=== PATIENT | male | born 1960 | race Caucasian/White ===

== ENCOUNTER 2023-04-21 15:00 | Outpatient (RCR) | payer BC, SELFPAY | END 2023-04-21 16:20 | disposition home or self-care (01) | LOC: PT 15:00 | PROVIDERS: Visit Provider Family Medicine Sports Medicine | DX: M17.12 Unilateral primary osteoarthritis, left knee (principal) | CPT/HCPCS: 97010; 97014; 97016; 97033; 97035; 97110; 97163; 97164; 97530; G0283 ==

== ENCOUNTER 2023-12-20 11:21 | Outpatient (CLI) | payer MEDICARE, SELFPAY ==
--- NOTE | 2023-12-20 11:22 | FL_ITS ---
FINAL REPORT CLINICAL HISTORY: intermittent dysphagia 1039.12 dap 1.00 fluoro FINDINGS: ESOPHAGRAM HISTORY: Dysphagia. PROCEDURE: The patient ingested barium. Effervescent crystals were also administered. Spot and overhead films were obtained. 33 total images were performed. FINDINGS: The esophagus is normal. There is no hiatal hernia. There is no gastroesophageal reflux demonstrated. There is very mild esophageal dysmotility. 13 mm barium tablet passes easily through the esophagus and into the stomach. FLUOROSCOPY TIME: 1 minute RADIATION EXPOSURE IN DAP: 1039.12 uGym2 IMPRESSION: Very mild esophageal dysmotility. Otherwise, unremarkable barium swallow. Reviewed, Interpreted and Dictated by Be Thurston III, MD Transcribed by Denae Acevedo PA-C Authenticated and [facility]
[2023-12-20] MEDS: BARIUM SULFATE(LIQUID E-Z-PAQUE);355ML BOTTLE 355 ML PO (11:41)
[2023-12-20] MEDS: E-Z-GASII EFFERVESCENT GRANULES;1PK 1 EACH PO (11:41)
[2023-12-20] MEDS: BARIUM SULFATE (E-Z-HD 340GM);135ML BOTTLE 135 ML PO (11:41)
== END 2023-12-20 23:59 | disposition home or self-care (01) ==
PROVIDERS: PCP Nurse Practitioner; Visit Provider Nurse Practitioner
DX: R13.10 Dysphagia, unspecified (principal)
CPT/HCPCS: 74220

== ENCOUNTER 2024-03-11 10:38 | Day surgery (SDC) | payer MEDICARE, SELFPAY ==
--- NOTE | 2024-03-08 08:05 | SUR.PREOP ---
called and left message in regards to procedure scheduled for Monday. Left message with arrival time, to be NPO at midnight the night prior, to bring a home medication list the day of the procedure. Asked patient to call back to verify medications since patient has anticoagulation prescribed. Message left 03/08/24 at 0806.
[2024-03-11 10:52] VITALS: BMI 31.5
[2024-03-11] MEDS: LACTATED RINGERS 1000ML 1,000 ML 50 ML IV (11:00)
[2024-03-11 11:09] VITALS: BP 148/106; PULSE 104; RESP 18; TEMP 36.7; O2SAT 91
--- NOTE | 2024-03-11 11:28 | P.PNANES_ITS ---
[facility] Disclaimer: The information contained in this section may have been updated after the patient was seen, as this information can be updated by other users. Medical History IBS (irritable bowel syndrome) Esophageal dysmotility Dysphagia GERD (gastroesophageal reflux disease) Swollen lymph nodes Surgical History (Updated 03/11/24 @ 10:58 by Joseph Gong RN) History of toe surgery History of tonsillectomy and adenoidectomy History of cataract surgery History of cardiac cath History of foot surgery History of thumb surgery History of left knee surgery History of total right knee replacement History of right knee surgery Family History (Updated 03/11/24 @ 10:58 by Joseph Gong RN) Other Colon cancer Social History (Updated 03/11/24 @ 10:59 by Joseph Gong RN) Smoking Status: Never smoker alcohol intake: never substance use type: denies use current occupational status: retired Travel in the last 8 weeks: None [facility] Anesthesia Checklist Patient Identification Patient Identification: Arm Band Structural Data Admitted From: Home Planned Operative Procedure/s: EGD/Colonoscopy Consent for Planned Operative Procedure(s) Verified: Yes Verified Documents: Surgical Consent and History and Physical NPO Status Verified Time NPO: 00:00 Additional verifications Anesthesia Reactions: No Airway Assessment Mallampati Score:: Class II C-Spine Mobility Assessed: Yes TMJ Mobility Assessed: Yes Dentition: Poor Dentition Neurological Assessment Level of Consciousness: Awake, Alert and Appropriate Anesthesia Plan Anesthesia Risk discussed: Yes Anesthesia Plan: Verified ASA Class: III Anesthesia Type: MAC
--- NOTE | 2024-03-11 11:37 | P.HP_ITS ---
History of Present Illness *Admission Date: 03/11/24 *Reason for visit:: Globus/dysphagia, iron deficiency, family history of colon cancer *History of present illness: Mr. Arroyo is a 64-year-old gentleman who is here for diagnostic EGD and colonoscopy. The patient has had GERD and dysphagia. He does have a history of iron deficiency and family history of colon cancer. The examination is deemed medically necessary for EGD and colonoscopy. The patient has been seen, interviewed and examined prior to the procedure by both myself and the anesthesia provider. [facility] Disclaimer: The information contained in this section may have been updated after the patient was seen, as this information can be updated by other users. Medical History IBS (irritable bowel syndrome) Esophageal dysmotility Dysphagia GERD (gastroesophageal reflux disease) Swollen lymph nodes Surgical History (Updated 03/11/24 @ 10:58 by Joseph Gong RN) History of toe surgery History of tonsillectomy and adenoidectomy History of cataract surgery History of cardiac cath History of foot surgery History of thumb surgery History of left knee surgery History of total right knee replacement History of right knee surgery Family History (Updated 03/11/24 @ 10:58 by Joseph Gong RN) Other Colon cancer Social History (Updated 03/11/24 @ 11:29 by Jer Dominguez CRNA) Smoking Status: Never smoker alcohol intake: never substance use type: denies use current occupational status: retired Travel in the last 8 weeks: None Have you lived/traveled outside [place] in past 30 days?: No Contact w/someone who lives/traveled outside US past 30 days?: No Exposure to someone with infectious disease in past 14 days?: No Do you have a fever (greater than 100.4 F or 38 C)?: No Have you tested positive for COVID-19: No Exposed to someone with COVID-19 in past 14 days?: No Do you have a sore throat?: No Do you have a cough?: No Do you have any weakness?: No Are you experiencing any nausea/vomitting?: No Do you have any diarrhea?: No Are you experiencing any unusual bleeding?: No Do you have any muscle aches/pain?: No Do you have any abdominal pain?: No Are you experiencing loss of taste or smell?: No Other Medical History Have you received the Pneumonia Vaccine: No Review of Systems Review of Systems Review of systems (narrative): Negative *Cardiovascular Comments: Negative *Gastrointestinal Comments: Negative *Genitourinary Comments: Negative *Musculoskeletal Comments: Negative *Neurologic Comments: Negative Meds Home Medications and Allergies Home Medications ?Medication ?Instructions ?Recorded ?Confirmed ?Type amlodipine 10 mg tablet (Norvasc) 10 mg PO DAILY 12/11/23 03/11/24 History aspirin 81 mg tablet,delayed 81 mg PO DAILY 12/11/23 03/11/24 History release (Adult Low Dose Aspirin) buspirone 5 mg tablet 5 mg PO DAILY 12/11/23 03/11/24 History calcium 600 mg (as 1 cap PO DAILY 12/11/23 03/11/24 History carbonate)-vitamin D3 12.5 mcg (500 unit) capsule (Calcium with Vit D3) cholecalciferol (vitamin D3) 10 20 mcg PO DAILY 12/11/23 03/11/24 History mcg (400 unit) capsule clopidogrel 75 mg tablet (Plavix) 75 mg PO DAILY 12/11/23 03/11/24 History escitalopram oxalate 5 mg tablet 5 mg PO DAILY 12/11/23 03/11/24 History (Lexapro) hydroxyzine HCl 25 mg tablet 25 mg PO HS 12/11/23 03/11/24 History levothyroxine 150 mcg tablet 150 mcg PO DAILY 12/11/23 03/11/24 History (Synthroid) magnesium aspart,citrate,oxide 400 mg PO DAILY 12/11/23 03/11/24 History (Triple Magnesium Complex) mecobalamin (vitamin B12) 500 mcg 1,000 mcg PO DAILY 12/11/23 03/11/24 History chewable tablet methocarbamol 750 mg tablet 750 mg PO HS 12/11/23 03/11/24 History multivitamin with minerals-folic 2 tab PO DAILY 12/11/23 03/11/24 History acid 120 mcg chewable tablet (Men's Multivitamin Gummies) omeprazole 40 mg capsule,delayed 40 mg PO BID 12/11/23 03/11/24 History release pediatric nthmobss-vtsn-qyx 1 tab PO DAILY 12/11/23 03/11/24 History (Multi-Vitamins with Iron chewable tablet) ropinirole 1 mg tablet 1 mg PO DAILY 12/11/23 03/11/24 History valsartan 80 mg tablet (Diovan) 80 mg PO DAILY 12/11/23 03/11/24 History rosuvastatin 20 mg tablet (Crestor) 20 mg PO DAILY 12/28/23 03/11/24 History famotidine 20 mg tablet (Pepcid) 20 mg PO DAILY 03/07/24 03/11/24 History New Prescriptions to Start Prescriptions: Allergies Allergy/AdvReac Type Severity Reaction Status Date / Time From Naproxen Sodium Allergy Mild NA-NAUSEA Uncoded 01/02/24 13:45 Exam Data for Last 24 hours I & O for Last 24 hours: Intake & Output 03/08/24 03/09/24 03/10/24 03/11/24 23:59 23:59 23:59 23:59 Weight 220 lb *Routine HEENT Exam Head: Present normocephalic Eye: Present EOMI and PERRL ENT: Present mucous membranes moist *Routine Neck Exam Neck: Present supple *Routine Respiratory Exam Respiratory: Present CTA bilaterally *Routine Cardiovascular Exam Cardiovascular: Present RRR *Routine Abdominal Exam Abdominal: Present soft and normoactive bowel sounds; Absent tenderness *Routine Rectal Exam Rectal:: deferred *Routine Genitalia Exam Genitalia:: deferred *Routine Extremities Exam Extremities: Absent cyanosis, clubbing or edema *Routine Skin Exam Skin: Present warm; Absent rash *Routine Neurological Exam Neurological: Present alert and oriented X3 Assessment and Plan *Assessment and plan (1) GERD (gastroesophageal reflux disease): Status: Acute Qualifiers: Esophagitis presence: with esophagitis Esophagitis bleeding: without hemorrhage Qualified Code(s): K21.00 - Gastro-esophageal reflux disease with esophagitis, without bleeding Category: Medical Code(s): K21.9 - Gastro-esophageal reflux disease without esophagitis (2) Dysphagia: Status: Acute Qualifiers: Dysphagia type: unspecified Qualified Code(s): R13.10 - Dysphagia, unspecified Category: Medical Code(s): R13.10 - Dysphagia, unspecified (3) Iron deficiency: Status: Acute Category: Medical Code(s): E61.1 - Iron deficiency (4) Irritable bowel syndrome with mixed bowel habits: Status: Acute Category: Medical Code(s): K58.2 - Mixed irritable bowel syndrome (5) Family history of colon cancer: Status: Acute Category: Medical Code(s): Z80.0 - Family history of malignant neoplasm of digestive organs Plan A/P: 1. GERD/dysphagia/globus sensation for upper endoscopy and iron deficiency plus family history for colonoscopy (last colonoscopy greater than 5 years ago) is the preprocedural diagnosis. The patient will be anesthetized/sedated using MAC sedation. The patient has been seen and examined. Cardiac and lung assessment prior to the examination is stable. Proceed with planned EGD and colonoscopy
[2024-03-11 11:52] VITALS: O2SAT 95
--- NOTE | 2024-03-11 11:57 | HMH.PROCNOTE ---
[facility] Procedure Note Date: 03/11/24 Procedure Note:: Upper Endoscopy Procedure Report: Esophagogastroduodenoscopy with cold biopsies and TTS balloon dilation Endoscopost: Jonas Munoz II, MD Referring Physician: SANTIAGO Hilliard Date of Procedure: March 11, 2024 Equipment: Olympus GIF 190 standard upper endoscope Sedation: MAC sedation Indications: Mr. Arroyo is a 64-year-old gentleman with dysphagia which can occur with solids or liquids. The patient did have an ENT and had a barium swallow which showed esophageal dysmotility but no other findings or esophageal stricture. He does state that eventually food will go down slowly. He has had moderate belching and gassiness. He reports occasional nausea and lower sternal chest discomfort. He reports no early satiety. The patient does have a long history of IBS with diarrhea. He does have incomplete bowel evacuation with some straining. He is uncertain whether he has ever had an EGD. Procedure: Prior to the procedure, a history and physical exam was performed, and patient's medications and allergies were reviewed. The risks, benefits and alternatives of the sedation and procedure were discussed with the patient. All questions were answered and informed consent was obtained. The patient was brought to the procedure room. Patient identification and proposed procedure were verified by the physician and the nurse. The patient was placed in a left lateral decubitus position and the scope was passed under direct vision. Throughout the procedure, the patient's blood pressure, pulse, and oxygen saturations were monitored continuously. The upper GI endoscopy was accomplished without difficulty. The patient tolerated the procedure well. Findings: The scope was passed directly into the upper esophagus and advanced to the third portion of the duodenum. The post bulbar duodenum and duodenal bulb had minor scalloping of the duodenal conniventes. Biopsies were taken from the post bulbar duodenum and duodenal bulb to rule out celiac disease. The scope was withdrawn through a normal duodenal bulb and pylorus into the stomach. There was some linear reactive gastropathy of the antrum and body with bile reflux. The remainder of the body and fundus were normal. Upon retroflexion there was no hiatal hernia biopsies were taken from the antrum.. The scope was then withdrawn into the esophagus. There was no evidence of reflux esophagitis or Austin's. There was no Schatzki's ring, corrugation or furrowing. There was no proximal esophageal inlet patch. There were strong tertiary contractions and evidence of moderate esophageal dysmotility. The entire esophagus was dilated to 60 Thai/20 mm with a TTS hydrostatic balloon. There was some resistance at the cricopharyngeus/cricopharyngeal spasm. The remainder of the esophageal mucosa was normal. Impression: 1. Cricopharyngeal spasm status post dilation to 20 mm 2. Nonerosive GERD with moderate esophageal dysmotility 3. Bile reflux with mild linear reactive gastropathy 4. Mild scalloping of duodenal conniventes?rule out celiac disease Plan: I will follow-up the biopsies to rule out celiac disease. The patient's dysphagia and globus are related to the cricopharyngeal spasm. We will discuss additional treatment options. I will proceed with colonoscopy.
--- NOTE | 2024-03-11 12:28 | HMH.PROCNOTE ---
[facility] Procedure Note Date: 03/11/24 Time: 12:28 Procedure Note:: Colonoscopy Procedure Report: Colonoscopy with cold snare polypectomy and ablation/coagulation of internal hemorrhoids Endoscopist: Jonas Munoz II, MD Referring physician: SANTIAGO Hilliard Date of Procedure: March 11, 2024 Equipment: Olympus 190 variable stiffness pediatric colonoscope Sedation: MAC sedation Indication: Mr. Arroyo is a 64-year-old gentleman with iron deficiency and mixed IBS with diarrhea and incomplete defecation. The patient also has some intermittent blood with wiping. He does get moderate gassiness. His mother had colon cancer in her early 70s and he had maternal great aunts with colon cancer. His last colonoscopy was more than 5 years ago. He has had a colon polyp removed previously. He reports no abdominal pain or weight loss. He has no bloating. Procedure: Prior to the procedure, a history and physical exam was performed, and patient's medications and allergies were reviewed. The risks, benefits and alternatives of the sedation and procedure were discussed with the patient. All questions were answered and informed consent was obtained. The patient was brought to the procedure room. Patient identification and proposed procedure were verified by the physician and the nurse. The patient was placed in a left lateral decubitus position and the scope was passed under direct vision. Throughout the procedure, the patient's blood pressure, pulse, and oxygen saturations were monitored continuously. The colonoscopy was accomplished without difficulty. The patient tolerated the procedure well. Findings: On digital rectal examination there was normal rectal tone. There were no external hemorrhoids. The prostate was 2+, smooth, soft, symmetric without nodules. The colonoscope was introduced through the anal canal to the rectum and advanced to the cecum. The ileocecal valve and appendiceal orifice were identified. The scope was advanced a short distance into the ileum which appeared grossly normal. The scope was then withdrawn into the colon. There were 2 polyps (cecum x 1 (4 mm) and descending x 1 (4 mm)). Both of these were removed via cold snare polypectomy. The remaining cecum, ascending and transverse colon and mucosa were grossly normal. There were scattered diverticuli throughout the descending and sigmoid colon (LEFT colon). The rectum itself was normal. Upon retroflexion within the rectum there were grade 2 internal hemorrhoids. The hemorrhoids were ablated/coagulated using monopolar force coagulation to destruction. The preparation was excellent throughout with Harper Preparation Score of 9. The cecal time was 14 minutes. Impression: 1. Diminutive colonic polyps x 2 2. Left-sided diverticulosis 3. Grade 2 internal hemorrhoids status post monopolar ablation/coagulation Plan: I would encourage bulking psyllium fiber supplementation on a long-term daily maintenance basis. I will follow-up the polyp histology and recommend repeat surveillance colonoscopy again in 5 years.
[2024-03-11 12:34] VITALS: BP 83/55; PULSE 95; RESP 20; TEMP 36.4; O2SAT 92
[2024-03-11 12:44] VITALS: BP 102/56; PULSE 89; RESP 16; O2SAT 92
[2024-03-11 12:54] VITALS: BP 108/72; PULSE 79; RESP 16; O2SAT 94
[2024-03-11 13:00] VITALS: BP 123/71; PULSE 86; RESP 16; O2SAT 92
[2024-03-11 14:48] LABS: Basophils # 0.1 K/mm3 (0-0.2); Basophils % 0.7 % (0.1-2.0); Eosinophils # 0.1 K/mm3 (0.0-0.4); Eosinophils % 1.1 % (0.1-12.0); Hematocrit 45.1 % (42.0-52.0); Hemoglobin 14.8 g/dL (14.1-18.0); Lymphocytes # 1.8 K/mm3 (0.7-4.5); Lymphocytes % 20.1 % (10-50); Mean Corpuscular HGB Conc 32.8 g/dL (31.8-35.4); Mean Corpuscular Hemoglobin 31.9 pg (27.0-31.2); Mean Corpuscular Volume 97.2 fl (80-94); Monocytes # 0.5 K/mm3 (0.1-1.0); Monocytes % 5.3 % (1.7-9.3); Neutrophils # 6.5 K/mm3 (1.8-7.8); Neutrophils % 72.4 % (37.0-80.0); Platelet Count 399 K/mm3 (142-424); Red Blood Count 4.64 M/mm3 (4.60-6.20); White Blood Count 8.9 K/mm3 (4.8-10.8)
[2024-03-11 15:01] LABS: Iron 82 ug/dL (49-181)
[2024-03-11 15:18] LABS: Total Iron Binding Capacity 303 ug/dL (261-462)
[2024-03-11 15:40] LABS: Ferritin 95.2 ng/ml (17.9-464)
== END 2024-03-11 13:33 | disposition home or self-care (01) ==
PROVIDERS: Nurse Practitioner Family; PCP Nurse Practitioner Family; Visit Provider Internal Medicine Gastroenterology
PROC: 0DJ08ZZ Inspection of Upper Intestinal Tract, Via Natural or Artificial Opening Endoscopic (ICD-10-PCS; CPT 45378; principal; 2024-03-11 12:00)
DX: K21.00 Gastro-esophageal reflux disease with esophagitis, without bleeding (principal); R13.10 Dysphagia, unspecified; E61.1 Iron deficiency; K58.2 Mixed irritable bowel syndrome; Z80.0 Family history of malignant neoplasm of digestive organs; K22.4 Dyskinesia of esophagus; J39.2 Other diseases of pharynx; K31.9 Disease of stomach and duodenum, unspecified; K63.5 Polyp of colon; K57.30 Diverticulosis of large intestine without perforation or abscess without bleeding; K64.1 Second degree hemorrhoids
CPT/HCPCS: 43239; 43249; 45385; 45388; 36415; 82728; 83540; 83550; 85025; C1726; J2704; J7120

== ENCOUNTER → 2024-06-18 08:07 | Day surgery (SDC) | payer MEDICARE, SELFPAY ==
[2024-06-17 15:34] VITALS: BMI 34.2
[2024-06-18] VITALS (8 sets, daily range): BP systolic 115–130; BP diastolic 63–85; PULSE 77–106; RESP 16–18; TEMP 36.4–36.6; O2SAT 90–96
[2024-06-18] MEDS: CYCLOPENTOLATE 2% OPHTH SOLN 2ML BOTTLE OP ×3 (08:58→08:59)
[2024-06-18] MEDS: TETRACAINE 0.5% OPTH SOL 15ML OP ×3 (08:58→08:59)
[2024-06-18] MEDS: PHENYLEPHRINE 2.5% OPHTH SOLN 2ML OP ×3 (08:58→08:59)
[2024-06-18] MEDS: MIDAZOLAM 2MG/2ML VIAL 2 MG (10:18)
[2024-06-18] MEDS: SODIUM CHLORIDE 0.9% 10ML FLUSH SYRINGE 10 ML IV (10:18)
[2024-06-18] MEDS: LIDOCAINE 1% PF 2ML AMPULE 2 ML IJ (10:22)
[2024-06-18] MEDS: TIMOLOL 0.5% OPTH SOLN 5ML OP (10:22)
--- NOTE | 2024-06-18 10:26 | SUR.OPER ---
1008- iv occluded/ not working properly, new one inserted in the R AC, 20 gauge by this RN.
== END | disposition home or self-care (01) ==
PROVIDERS: PCP Nurse Practitioner Family; Visit Provider Ophthalmology
PROC: (CPT 66982; principal; 2024-06-18 10:00)
DX: H26.20 Unspecified complicated cataract (principal)
CPT/HCPCS: 66982; J2250; V2632